=== PATIENT | male | born 1945 | race Caucasian/White ===

== ENCOUNTER → 2019-01-21 08:13 | Outpatient (CLI) | payer OTHER ==
[~2019-01-21 08:13] MED LIST: BAYER CHEWABLE81 MG PO; BETAPACE 80 MG80 MG PO; ELIQUIS5 MG PO; PERCOCET 5-3251 TAB PO
--- NOTE | 2019-01-31 16:41 | ST ---
PATIENT:CHARAN SHAH MEDICAL RECORD: [id number] SEX: M LOCATION:[facility] ORDER #: ADMISSION DATE: 01/21/19 AGE OF PATIENT: 73 REFERRING PHYSICIAN: INTERPRETING PHYSICIAN: RANDY RUTLEDGE MD DATE OF SERVICE: 01/21/2019 Nuclear Stress Test INDICATIONS: Syncope. He was exercised on standard Joce protocol for 7 minutes 45 seconds achieving greater than 85% max target heart rate response with 33 mCi of sestamibi injected at peak stress, 11 mCi were used previously for rest images. FINDINGS: Gated SPECT reveals preserved ejection fraction at 50% with decreased thickening and brightening throughout the inferior segments. SPECT IMAGING: Cardiolite was used as myocardial perfusion agent. There is a mixed perfusion defect inferiorly, partially fixed, partially reversible; however, there is definite reversible ischemia anteriorly and laterally. The degree of reversibility is moderate throughout and the amount of myocardium involved is large. OVERALL IMPRESSION: This is markedly abnormal nuclear stress test. Reversible ischemia inferiorly, anteriorly, and laterally suggestive of multivessel coronary artery disease. We will proceed with coronary angiography as a follow-up study. TRANSINT:[id number] Voice Confirmation ID: [id number] DOCUMENT ID: [id number] RANDY RUTLEDGE MD at 1641 CC: [id number] DICTATION DATE: 01/22/19 1630 LYRIC WRITER: 01/23/19 0507 DEP CLI 01/21/19 [address] [place] [address]
[2019-02-28 11:01] VITALS: BMI 24.6
== END | disposition home or self-care (01) ==
LOC: D.HCCARDIO 08:13
PROVIDERS: ATTEND Internal Medicine Cardiovascular Disease
DX: R55 Syncope and collapse (principal)

== ENCOUNTER 2019-02-05 07:27 | Outpatient (CLI) | payer OTHER ==
[~2019-02-05] VITALS: Ht 182.9 cm; Wt 77.3 kg
--- NOTE | ~2019-02-05 | HEMODYNAMI ---
PATIENT:CHARAN SHAH MEDICAL RECORD: [id number] : 45 LOCATION:[facility] ADMISSION DATE: 02/05/19 Generatedon:02/05/201910:35 Patient name: CHARAN SHAH Patient #: [id number] SSN: : 1945 Date of study: 02/05/2019 Page: Of Hemodynamic Procedure Report Patient Data Patient Demographics Procedure consent was obtained First Name: CHARAN Gender: Male Last Name: PABLO : 1945 Patient #: [id number] Age: 73 year(s) Race: Unknown Additional ID: [id number] Contact details Address: [address] [place] [address] State: [place] City: [place] Zip code: [address] Past Medical History Allergies: No known allergies Admission Admission Data Admission Date: 02/05/2019 Admission Time: 7:27 Height (in.): 71.65 BSA: 1.98 (m2) Height (cm.): 182 BMI: 23.25 (kg/m2) Weight (lbs.): 169.76 Weight (kg.): 77 Lab Results Lab Result Date: 02/05/2019 Lab Result Time: 0:00 Biochemistry Name Units Result Min Max BUN mg/dl 16 --(---*)-- 7 18 Creatinine mg/dl 1.1 --(--*-)-- 0.6 1.3 CBC Name Units Result Min Max Hematocrit % 47.6 --(-*--)-- 42 54 Hemoglobin g/dl 16.5 --(--*-)-- 13.5 17.5 Procedure Procedure Types Cath Procedure Diagnostic Procedure [facility] Procedure Description Procedure Date Procedure Date: 02/05/2019 Procedure Start Time: 10:18 Procedure End Time: 10:30 Procedure Staff Name Function James Barnett MD Performing Physician Joi Beavers RT Monitor Gera Santos RT Scrub Antwan Vee RN Nurse Procedure Data Cath Procedure Fluoroscopy Diagnostic fluoroscopy Total fluoroscopy Time: 1.9 time: 1.9 min min Diagnostic fluoroscopy Total fluoroscopy dose: 421 dose: 421 mGy mGy Contrast Material Contrast Material Type Amount (ml) Isovue 300 67 Entry Location Entry Primary Successful Side Size Upsize Upsize Entry Closure Succes sful Closure Location (Fr) 1 (Fr) 2 (Fr) Remarks Device Remarks Femoral Right 5 Fr Exoseal artery Estimated blood loss: 5 ml Diagnostic catheters Device Type Used For End Catheter Placement MULTIPACK JL 4.0 5Fr Procedure catheter MULTIPACK 3DRC 5Fr Procedure catheter MULTIPACK Pigtail 5 Fr Procedure catheter Procedure Complications No complications Procedure Medications Medication Administration Route Dosage 0.9% NaCl I.V. 100 ml/hr Oxygen etCO2 Nasal cannula 2 l/min Heparin Flush Bag added to field 2 bags (1000units/500ml NS) Lidocaine 2% added to field 20 Versed I.V. 2 mg Fentanyl I.V. 100 mcg Hemodynamics Rest BSA: 1.98 (m2) HGB: 16.5 (g/dl) O2 Consumption: Estimated: 213.02 (ml/min) O2 Co nsumption indexed: Estimated:107.59 (ml/min/m) Heart Rate: 50 (bpm) Pressure Samples Time Site Value (mmHg) Purpose Heart Use Rate(bpm) 10:26 LV 115/-2,4 EDP 50 10:27 AO 115/56(79) Pullback 48 10:27 LV 103/0,13 Pullback 48 Gradients Valve Time Site 1 Site 2 Mean SEP/DFP Peak To Heart Use (mmHg) (sec/min) Peak Rate (mmHg) (bpm) Aortic 10:27 LV AO 0 5 0 48 103/0,13 115/56(79) Calculations Valve P-P Mean Valve Index Valve Source Name Gradient Area Flow (cm2) Aortic 0 0 0 0 Snapshots Pre Cath Intra NCS Post Cath Vital Signs Time Heart Resp SPO2 etCO2 NIBP Rhythm Pain Sedation Rate (ipm) (%) (mmHg) (mmHg) Status Level (bpm) 10:08:36 51 17 100 33.8 122/68(86) NSR 0 (11) 10(A) , No pain 10:12:46 45 11 99 36.7 112/64(75) NSR 0 (11) 10(A) , No pain 10:16:54 49 10 98 37.5 111/64(77) NSR 0 (11) 10(A) , No pain 10:21:00 50 19 98 39 110/63(73) NSR 0 (11) 9(A) , No pain 10:25:06 50 18 98 40.5 113/66(81) NSR 0 (11) 9(A) , No pain 10:29:10 48 15 98 38.3 117/63(75) NSR 0 (11) 9(A) , No pain Medications Time Medication Route Dose Verified Delivered Reason Notes Eff ectiveness by by 10:05:27 0.9% NaCl I.V. 100 Antwan Antwan Per ml/hr Nanda Bhandariigan physician RN RN 10:05:54 Oxygen etCO2 2 Antwan Antwan for low 02 Nasal l/min Lorigan Lorigan sats cannula RN RN 10:06:05 Heparin Flush added 2 Antwan Antwan used for Bag to bags Lorigan Lorigan procedure (1000units/500ml field RN RN NS) 10:06:15 Lidocaine 2% added 20ml Antwan Antwan for local to vial Lorigan Lorigan anesthetic field RN RN 10:15:34 Versed I.V. 2 mg Antwan Antwan for Lorigan Lorigan sedation RN RN 10:15:42 Fentanyl I.V. 100 Antwan Antwan for mcg Lorigan Lorigan sedation RN flatwork washer Log Time Note 9:45:34 Signed procedure consent form obtained from patient. 9:45:35 Diagnostic Cath status Elective 9:45:39 Plan of Care:Hemodynamics will remain stable., Cardiac rhythm will remain stable., Comfort level will be maintained., Respiratory function will remain adequate., Patient/ family verbilizes understanding of procedure., Procedure tolerated without complication., Recovers from procedure without complications.. 9:45:41 Time tracking: Regular hours (M-F 7:00 - 5:00) 9:48:22 Patient allergic to No known allergies 9:49:20 H&P Date Dictated: 01/10/2019 Within 30 days and on chart., H&P Addendum completed by physician on day of procedure. (MUST COMPLETE FOR ALL OUTPATIENTS). 9:51:08 Lab Result : BUN 16 mg/dl 9:51:08 Lab Result : Hemoglobin 16.5 g/dl 9:51:08 Lab Result : Creatinine 1.1 mg/dl 9:51:08 Lab Result : Hematocrit 47.6 % 9:52:49 Antwan Vee RN sent for patient. Start room use. 9:56:53 Patient received from Pre/Post Procedure Room to CCL 2 Alert and oriented. Tansferred to table in Supine position. 9:56:54 Warm blankets applied, and tashia hugger turned on for patient comfort. 9:56:55 Correct patient and procedure confirmed by team. 9:56:56 ECG and BP/O2 sat monitors applied to patient. 10:05:27 0.9% NaCl 100 ml/hr I.V. was administered by Antwan Vee RN; Per physician; 10:05:54 Oxygen 2 l/min etCO2 Nasal cannula was administered by Antwan Vee RN; for low 02 sats; 10:06:05 Heparin Flush Bag (1000units/500ml NS) 2 bags added to field was administered by Antwan Vee RN; used for procedure; 10:06:15 Lidocaine 2% 20ml vial added to field was administered by Antwan Vee RN; for local anesthetic; 10:07:27 Vital chart was started 10:08:26 Baseline sample Acquired. 10:08:29 Rhythm: sinus bradycardia 10:08:30 Full Disclosure recording started 10:08:31 Pre-procedure instructions explained to patient. 10:08:31 Pre-op teaching completed and patient verbalized understanding. 10:08:33 Family in patients room. 10:08:34 Patient NPO since Midnight. 10:08:36 Is patient on blood thinner?No 10:08:37 Patient diabetic? No. 10:08:39 Is the patient allergic to Iodine/contrast media? No. 10:08:42 Previous problem with sedation/anesthesia? No ? 10:08:43 Snore? Yes 10:08:44 Sleep apnea? No 10:08:45 Deviated septum? No 10:08:45 Opens mouth fully? Yes 10:08:46 Sticks out tongue? Yes 10:08:48 Airway obstruction? No ? 10:08:49 Dentures? No ? 10:08:51 Pre procedure: right dorsailis pedis pulse 1+ Palpable, but thready & weak; easily obliterated 10:08:59 Patient pain scale 0/10 ?. 10:09:03 IV patent on arrival in left hand with 0.9% NaCl at [facility]. 10:09:05 Lab results completed and on chart. 10:09:08 Right groin area was prepped with chlora-prep and draped in sterile fashion 10:09: Alarms reviewed by R. N. 10:09: Sharps counted by scrub and verified by R.N. 10:09:22 Use device set Femoral Dx 10:09:23 ACIST Syringe (53849) opened to sterile field. 10:09:24 Bag Decanter (2002S) opened to sterile field. 10:09:24 ACIST Hand Control (26896) opened to sterile field. 10:09:25 ACIST Manifold (24911) opened to sterile field. 10:09:26 Tegaderm 4 x 4 (1626W) opened to sterile field. 10:09:27 Medline Cath Pack ([id number]) opened to sterile field. 10:09:28 DIAGNOSTIC WIRE .035 260cm J wire (157793) opened to sterile field. 10:09:29 DIAGNOSTIC Multipack 5Fr catheter set (PX9629) opened to sterile field. 10:09:30 SHEATH 5FR [place] (GIE493) opened to sterile field. 10:11:16 Patient Weight : 169.76 lbs 10:11:19 Patient Height : 71.65 inches 10:15:04 --------ALL STOP TIME OUT------ 10:15:05 Final Timeout: patient, procedure, and site verified with staff and physician. All members of the team are in agreement. 10:15:06 Right groin site verified by team. 10:15:08 Maximum allowable Isovue 300 dose 300ml. Physician notified. (300ml for normal creatinines. For patients with creatinine of 1.7 or higher multiply weight(kg) x 5 divided by creatinine.) 10:15:11 Fire Safety Assessment: A--An alcohol-based skin anteseptic being used preoperatively., C--Open oxygen or nitrous oxide is being used., D--An ESU, laser, or fiber-optic light is being used. 10:15:13 Physical assessment completed. ASA score P 2 - A patient with mild systemic disease as per James Barnett MD. 10:15:15 Sedation plan: IV Moderate Sedation Medication:Versed, Fentanyl 10:15:19 Zero performed for pressure channel P1 10:15:34 Versed 2 mg I.V. was administered by Antwan Vee RN; for sedation; 10:15:42 Fentanyl 100 mcg I.V. was administered by Antwan Vee RN; for sedation; 10:17:40 Procedure started. 10:18:11 Local anesthetic to right femoral artery with Lidocaine 2% by James Barnett MD.INITIAL ACCESS ONLY 10:19:05 A 5 Fr sheath was inserted into the Right Femoral artery 10:20:02 A MULTIPACK JL 4.0 5Fr catheter was advanced over the wire and used for Procedure. 10:22:02 LCA angiography performed. 10:22:15 Catheter exchanged over wire. 10::40 A MULTIPACK 3DRC 5Fr catheter was advanced over the wire and used for Procedure. 10:24:15 RCA angiography performed. 10:24:47 Catheter exchanged over wire. 10:25:07 A MULTIPACK Pigtail 5 Fr catheter was advanced over the wire and used for Procedure. 10:25:34 LV gram done using PINTO 10::38 Injector settings: Ml/sec: 10, Volume: 20, 10:26:19 LV hemodynamics recorded. 10:27:11 EF : 40 % 10:27:14 Catheter removed. 10:27:59 EXOSEAL 5Fr (EX500) opened to sterile field. 10:28:35 Sheath removed intact; hemostasis achieved with Exoseal to the Right Femoral artery. 10:29:08 Procedure ended.(Physican Out) 10:29:24 Fluoroscopy time 01.90 minutes. 10:29:28 Fluoroscopy dose: 421 mGy 10::28 Flurop Dose total: 421 10:29:32 Contrast amount:Isovue 300 67ml. 10:29:33 Sharps counted by scrub and verified by R.N. 10:29:36 Post-op/insertion site Right Femoral artery dressed using a 4 x 4 and Tegaderm. 10:29:38 Post-procedure physical assessment completed. ASA score P 2 - A patient with mild systemic disease as per James Barnett MD. 10:29:41 Post procedure rhythm: sinus bradycardia 10::44 Estimated blood loss: 5 ml 10:29:45 Post procedure instruction explained to patient.Patient verbalizes understanding. 10:29:46 Patient needs reinforcement of post procedure teaching. 10:30:13 Procedure and supply charges have been captured, reviewed, submitted and are correct. 10:30:16 Procedure Complication : No complications 10:30:18 Vital chart was stopped 10:30:18 See physician's report for complete and final results. 10:30:22 Report given to Pre/Post Procedure Room. 10:30:25 Patient transfered to Pre/Post Procedure Room with Bed. 10:30:27 Procedure ended. 10:30:27 Full Disclosure recording stopped 10:30:30 End room use (Document Last) Device Usage Item Name Manufacture Quantity Catalog Hospital Part Current Minimal L ot# / Number Charge Number Stock Stock Serial# Code ACIST Acist 1 86503 140936 800692 061073 20 Syringe Medical (23100) Systems Inc Bag Microtek 1 2001S 860351 28417 242608 5 Decanter Medical Inc. () ACIST Hand Acist 1 73091 938553 962179 990036 5 Control Medical (73828) Systems Inc ACIST Acist 1 27382 021942 171653 953354 5 Manifold Medical (81919) Systems Inc Tegaderm 4 3M 1 1626W 617372 417754 374775 5 x 4 (1626W) Medline Medline 1 [id number] 491455 49133 185007 5 Cath Pack ([id number]) DIAGNOSTIC St Kota 1 027742 292210 640900 205308 30 WIRE .035 260cm J wire (692543) DIAGNOSTIC Cardinal 1 [id number] 052952 69297 727501 30 Multipack Health 5Fr catheter set (NK0311) SHEATH 5FR Terumo 1 TRR334 766031 760097 336271 5 [place] (LFN623) MULTIPACK Cardinal 1 402610 5 JL 4.0 5Fr Health catheter MULTIPACK Cardinal 1 930215 5 3DRC 5Fr Health catheter MULTIPACK Cardinal 1 404468 5 Pigtail 5 Health Fr catheter EXOSEAL 5Fr Cardinal 1 EX500 816408 273463 346904 10 (EX500) Health Signature Audit Ranger Stage Time Signature Unsigned Intra-Procedure 02/05/2019 Joi Beavers 10:35:38 AM RT(R) Signatures Monitor : Joi Beavers Signature : RT Date : Time : [address] [place] [address]
[2019-02-05 08:00] VITALS: BP 139/70; BMI 23.1
[2019-02-05 08:10] LABS: BASOPHILS 0.2 % (0-2); EOSINOPHILS 4.2 % (0-7); HEMATOCRIT 47.6 % (42.0-54.0); HEMOGLOBIN 16.5 g/dL (13.5-17.5); IMMATURE GRANULOCYTES 0.2 % (0-5); LYMPHOCYTES 23.6 % (15-50); MCH 30.7 pg (26.0-34.0); MCHC 34.7 g/dL (31.0-37.0); MCV 88.6 fL (80.0-100.0); MEAN PLATELET VOLUME 10.1 fL (7.4-10.4); MONOCYTES 10.6 % (2-11); NEUTROPHILS 61.2 % (40-80); PLATELET COUNT 187 10x3/uL (130-400); RBC 5.37 10x6/uL (4.20-6.10); RDW 12.5 % (11.5-14.5); WBC 6.4 10x3/uL (4.8-10.8)
[2019-02-05 08:20] LABS: ANION GAP 8.9 mmol/L (8-16); CALCIUM 8.8 mg/dL (8.5-10.1); CARBON DIOXIDE 28.7 mmol/L (21.0-32.0); CREATININE - SERUM 1.1 mg/dL (0.6-1.3); POTASSIUM - SERUM 3.6 mmol/L (3.5-5.1)
--- NOTE | 2019-02-05 10:43 | NUR ---
PT ARRIVED BY STRETCHER. PLACED ON MONITORS. ASSESSMENT COMPLETED. CALL LIGHT WITHIN REACH.
--- NOTE | 2019-02-05 11:00 | NUR ---
RIGHT GROIN DRESSING C/D/I. NO S/S OF HEMATOMA NOTED. RIGHT PEDAL PULSE PRESENT. VSS. RESTING COMFORTABLY.
--- NOTE | 2019-02-05 11:30 | NUR ---
RIGHT GROIN DRESSING C/D/I. NO S/S OF HEMATOMA NOTED. VSS. PT RESTING COMFORTABLY.
--- NOTE | 2019-02-05 11:46 | NUR ---
HEAD OF BED INC TO 30 DEGREES. TOLERATED WELL. RIGHT GROIN DRESSING C/D/I. NO S/S OF HEMATOMA NOTED. VSS. PT MORE ALERT. SET UP WITH SANDWICH TRAY AND DRINK. DENIES PAIN/NAUSEA AT THIS TIME. DR. MORENO WILL ROUND WHEN PT IS MORE ALERT AND SPEAK WITH HIM REGARDING HIS RESULTS.
--- NOTE | 2019-02-05 12:06 | NUR ---
PT VOIDED APPROX 400 CC OF URINE IN URINAL. TOLERATED WELL. ATE FOOD/DRINK. DENIES NAUSEA.
--- NOTE | 2019-02-05 13:00 | NUR ---
RIGHT GROIN DRESSING C/D/I. NO S/S OF HEMATOMA NOTED. LEFT ARM PIV D/C'D WITH CATH TIP INTACT. PT TOLERATED WELL. PT UP AND DRESSED SELF. AMBULATED TO RESTROOM AND VOIDED WITHOUT DIFFICULTY. STEADY GAIT NOTED.
--- NOTE | 2019-02-05 13:16 | NUR ---
WAITING ON DR. SCOTT TO ROUND AND SPEAK WITH PT.
--- NOTE | 2019-02-05 14:14 | NUR ---
DR. SCOTT AT BEDSIDE SPEAKING WITH PT.
[2019-02-05] MEDS ORDERED: BAYER CHEWABLE81 MG PO (14:32)
--- NOTE | 2019-02-05 14:40 | NUR ---
DISCUSSED DISCHARGE INSTRUCTIONS WITH PT. HE VOICED UNDERSTANDING.
--- NOTE | 2019-02-05 14:44 | NUR ---
PT TAKEN OUT TO VEHICLE BY WHEELCHAIR. NO S/S OF DISTRESS NOTED. ALL BELONGINGS AND PAPERWORK IN HAND.
[2019-02-06 13:50] VITALS: Ht 182.9 cm; Wt 77.3 kg
== END 2019-02-05 14:45 | disposition home or self-care (01) ==
LOC: D.CATH 07:27
PROVIDERS: ATTEND Internal Medicine Cardiovascular Disease
DX: I25.119 Atherosclerotic heart disease of native coronary artery with unspecified angina pectoris (principal); R94.30 Abnormal result of cardiovascular function study, unspecified; K21.9 Gastro-esophageal reflux disease without esophagitis; Z79.82 Long term (current) use of aspirin; Z87.891 Personal history of nicotine dependence; Z01.812 Encounter for preprocedural laboratory examination

== ENCOUNTER 2019-02-24 07:55 | Inpatient (IN) | payer OTHER ==
[~2019-02-24] VITALS: Ht 182.9 cm; Wt 79.5 kg
[~2019-02-24 07:55] MED LIST changes: -BETAPACE 80 MG80 MG PO; -ELIQUIS5 MG PO; -PERCOCET 5-3251 TAB PO
[2019-02-24 10:15] LABS: BASOPHILS 0.1 % (0-2); EOSINOPHILS 1.7 % (0-7); HEMATOCRIT 48.1 % (42.0-54.0); HEMOGLOBIN 16.6 g/dL (13.5-17.5); IMMATURE GRANULOCYTES 0.1 % (0-5); LYMPHOCYTES 15.1 % (15-50); MCH 30.9 pg (26.0-34.0); MCHC 34.5 g/dL (31.0-37.0); MCV 89.4 fL (80.0-100.0); MEAN PLATELET VOLUME 10.2 fL (7.4-10.4); MONOCYTES 10.8 % (2-11); NEUTROPHILS 72.2 % (40-80); PLATELET COUNT 187 10x3/uL (130-400); RBC 5.38 10x6/uL (4.20-6.10); RDW 12.7 % (11.5-14.5); WBC 7.8 10x3/uL (4.8-10.8)
[2019-02-24 10:28] LABS: APPEARANCE CLEAR (CLEAR); BILIRUBIN NEGATIVE (NEGATIVE); COLOR YELLOW (YELLOW); GLUCOSE NEGATIVE (NEGATIVE); KETONE NEGATIVE (NEGATIVE); NITRITE NEGATIVE (NEGATIVE); PROTEIN NEGATIVE (NEGATIVE); SPECIFIC GRAVITY 1.015 (1.005-1.020); UROBILINOGEN NORMAL (NORMAL)
[2019-02-24 10:33] LABS: APTT 31.4 SECONDS (22.8-39.4); INR 1.11 (0.85-1.17); PROTIME 13.8 SECONDS (11.6-15.0)
[2019-02-24 10:48] LABS: ANION GAP 8.9 mmol/L (8-16); BILIRUBIN - TOTAL 0.8 mg/dL (0.2-1.3); CALCIUM 9.2 mg/dL (8.5-10.1); CARBON DIOXIDE 31.4 mmol/L (21.0-32.0); CREATININE - SERUM 1.1 mg/dL (0.6-1.3); PHOSPHOROUS 3.2 mg/dL (2.5-4.9); POTASSIUM - SERUM 4.3 mmol/L (3.5-5.1); PROTEIN - SERUM 7.2 g/dL (6.4-8.2); T4 THYROXIN - FREE 1.14 ng/dL (0.76-1.46); THYROID STIMULATING HORMONE 1.98 uIU/mL (0.36-3.74); URIC ACID 4.3 mg/dL (2.6-7.2)
[2019-02-27] VITALS (49 sets, daily range): BP systolic 100–139; BP diastolic 48–78; BMI 23.1; BMI 24.4
--- NOTE | 2019-02-27 14:07 | NUR ---
1300 PT ARRIVED TO ROOM SEDATED FROM SURGERY, ETT 24 AT [facility], SECURED AND PLACED ON VENT BY RT, R IJ CVL DRESSING CDI WITH PLASMALYTE, ADDISON, DOPAMINE INFUSING, ZINACEF INITIATED PER EMAR, R RADIAL A LINE POSITIONAL, WRIST PROTECTOR IN PLACE, DRESSING CDI, MIDSTERNAL INCISION DRESSING CDI SUBSTERNAL TPM WIRES ATTACHED TO TPM, TPM OFF, CTX2 TO 20CMSUCTION NO AIR LEAK, BLOODY DRAINAGE, ZO DRAIN COMPRESSED WITH BLOODY DRAINAGE, RLE HARVEST SITES CDI WITH COBAN FROM GROIN TO ANKLE, CRITICORE DRAINING YELLOW URINE, NO SIGNS OF PAIN, ABLE TO FOLLOW COMMANDS WITH HAND DOG FOOD SHREDDER OPERATOR, FAMILY UPDATED BY DR SCOTT THEN IN ROOM TO SEE PT, STATED THEY WERE GOING TO EAT AND WOULD BE BACK 1330 HR DROPPING INTO 50S, LOWEST SEEN AT 57, DR SCOTT IN UNIT AND NOTIFIED, TPM TURNED ON AAI 70 AMA 15
--- NOTE | 2019-02-27 15:41 | NUR ---
PPM TURNED OFF BY DR SCOTT HR 68 NSR
--- NOTE | 2019-02-27 16:48 | NUR ---
ABGS CALLED TO DR SCOTT WHO SAID NOT TO TREAT BASE EXCESS AND OKAY TO EXTUBATE
--- NOTE | 2019-02-27 17:07 | NUR ---
1655 PT EXTUBATED AND RESTRAINTS REMOVED, [id number]
--- NOTE | 2019-02-27 18:19 | NUR ---
CRITICORE TEMP 98.4, PERCOCET ADMIN FOR PAIN (CONTAINS TYLENOL
--- NOTE | 2019-02-27 19:08 | NUR ---
REPORT RECEIVED, SHIFT ASSESSMENT COMPLETED PER FLOW SHEET. AAOX4. PPP. RT IJ CVL PATENT, INFUSING PLASMALYTE AT 100 ML/HR, ZINACEF AT 11.4 ML/HR, AND DOPAMINE AT 5.8 ML/HR OR 2 MCG/KG/MIN. CVP AND RT ARTERIAL LINE LEVELED AND ZEROED WITH GOOD WAVEFORM. COUGH/DEEP BREATHING AND USE OF IS ENCOURAGED. COUGH WEAK AND NON-PRODUCTIVE, PULLING 750 X10 ON IS. SEE FLOW SHEET FOR COMPLETE ASSESSMENT. DENIES PAIN OR NEEDS. CALL LIGHT WITHIN REACH. WILL CONTINUE TO MONITOR.
--- NOTE | 2019-02-27 20:34 | NUR ---
SCHEDULED MEDS GIVEN. WATER PROVIDED. NO DIFFFICULTY SWALLOWING. DENIES NEEDS. CALL LIGHT WITHIN REACH.
--- NOTE | 2019-02-27 22:00 | NUR ---
WATER PROVIDED. PULLING 750 X10 ON IS. COUGH WEAK, NON-PRODUCTIVE.
--- NOTE | 2019-02-27 23:01 | NUR ---
REASSESSMENT COMPLETED PER FLOW SHEET, SEE FOR DETAILS. NO ACUTE CHANGES NOTED. PPP. DENIES NEEDS. DANGLE AT BEDSIDE, PER DOCTOR'S ORDERS, TOLERATED WELL. REPOSITIONED IN BED. WATER PROVIDED. DENIES OTHER NEEDS. CALL LIGHT WITHIN REACH. WILL CONTINUE TO MONITOR.
[2019-02-28] VITALS (55 sets, daily range): BP systolic 85–133; BP diastolic 43–76; Ht 182.9 cm; Wt 79.5 kg
--- NOTE | 2019-02-28 00:01 | NUR ---
C/O PAIN, PRN PERCOCET GIVEN. WATER PROVIDED. DENIES OTHER NEEDS. CALL LIGHT WITHIN REACH.
--- NOTE | 2019-02-28 01:00 | NUR ---
RESTING, DENIES NEEDS. CALL LIGHT WITHIN REACH. WILL CONTINUE TO MONITOR.
--- NOTE | 2019-02-28 03:02 | NUR ---
REASSESSMENT COMPLETED PER FLOW SHEET, SEE FOR DETAILS. NO ACUTE CHANGES NOTED. WATER PROVIDED. PPP. DENIES NEEDS. CALL LIGHT WITHIN REACH. WILL CONTINUE TO MONITOR.
--- NOTE | 2019-02-28 05:00 | NUR ---
SUBSTERNAL DRESSING CHANGED PER DOCTOR'S ORDERS. TPM WIRES INTACT. WATER PROVIDED. CALL LIGHT WITHIN REACH. WILL CONTINUE TO MONITOR.
--- NOTE | 2019-02-28 06:00 | NUR ---
COMPLETE BED BATH GIVEN. COMPLETE BED LINEN CHANGE PROVIDED.
--- NOTE | 2019-02-28 06:20 | NUR ---
ASSISSTED OOB TO CHAIR, TOLERATED WELL. CALL LIGHT WITHIN REACH.
[2019-02-28 06:28] LABS: ALBUMIN 2.7 g/dL (3.4-5.0); ALKALINE PHOSPHATASE 48 U/L (46-116); ALT (SGPT) 18 U/L (10-68); BILIRUBIN - TOTAL 1.34 mg/dL (0.2-1.3); CALC OSMOLALITY 282 mosm/kg (275-300); CALCIUM 7.7 mg/dL (8.5-10.1); CARBON DIOXIDE 27.3 mmol/L (21.0-32.0); CHLORIDE - SERUM 105 mmol/L (98-107); CREATININE - SERUM 0.9 mg/dL (0.6-1.3); POTASSIUM - SERUM 4.6 mmol/L (3.5-5.1); PROTEIN - SERUM 4.9 g/dL (6.4-8.2); SODIUM 139 mmol/L (136-145); UREA NITROGEN 18 mg/dL (7-18); eGFR NON AFRICAN AMERICAN 88 mL/min (90-120)
[2019-02-28 06:31] LABS: GLUCOSE 151 mg/dL (74-106)
[2019-02-28 06:56] LABS: HEMATOCRIT 37.8 % (42.0-54.0); HEMOGLOBIN 12.7 g/dL (13.5-17.5); MCHC 33.6 g/dL (31.0-37.0); MCV 89.4 fL (80.0-100.0); MEAN PLATELET VOLUME 10.3 fL (7.4-10.4); RBC 4.23 10x6/uL (4.20-6.10); WBC 15.4 10x3/uL (4.8-10.8)
--- NOTE | 2019-02-28 09:55 | NUR ---
0700 PT RECIEVED UP IN CHAIR ALERT AND ORIENTED O2 4L NC R IJ CVL DRESSING CDI, SEE IV FLOWSHEET, MIDSTERNAL AND SUBSTERNAL DRESSINGS CDI WITH SUBSTERNAL CTX2 20CM SUCTION BLOODY DRAINAGE NO AIR LEAK, SUBSTERNAL ZO DRAIN COMPRESSED WITH BLOODY DRAIANGE, TPM WIRES ATTACHED BUT TPM OFF, RLE HARVEST SITES CDI WITH COBAN GROIN TO ANKLE, CRITICORE DRAINING YELLOW URINE 0745 PT ASSISTED BACK TO BED AND CTS REMOVED BY DR SCOTT 0930 A LINE REMOVED PER PROTOCOL TIP INTACT NO SIGNS OF BLEEDING,MOY CATH REMOVED PER PROTOCOL TIP INTACT, RLE COBAN REMOVED, BREONNA AND SCD APPLIED, ASSISTED BACK TIP TO CHAIR
--- NOTE | 2019-02-28 10:06 | NUR ---
AFTER BEING ASSISTED BACK TO CHAIRHR 116 JUNCTIONAL RHYTHEM WITH BIGEMINEY PVCS (EKG STRIP REVIEWED BY DR GEORGE AND JOSH) FOR APPROX 30 SECONDS THEN CONVERTING TO NSR 80S.
--- NOTE | 2019-02-28 13:01 | NUR ---
PT HR ELEVATED IN JUNCTIONAL WITH PVC BEFORE CONVERTING BACK TO NSR, DR ZARATE NURSE GERSON NOTIFIED
--- NOTE | 2019-02-28 14:44 | NUR ---
DR SCOTT IN UNIT AND NOTIFIED OF ARRHYTHMIAS, ORDERS FOR K AND MAG, DRAWN AND SENT TO LAB
[2019-02-28 14:53] LABS: MAGNESIUM - SERUM 2.3 mg/dL (1.8-2.4); POTASSIUM - SERUM 4.7 mmol/L (3.5-5.1)
--- NOTE | 2019-02-28 15:16 | NUR ---
CONFIRMED WITH DR SONIA VANCE TO AMBULATE WITH PHYSICAL THERAPY WITH HR 110S-120S, OKAYED AND PT AMBULATED IN ROOM WITH THERAPY
--- NOTE | 2019-02-28 16:17 | OP ---
PATIENT NAME: CHARAN SHAH MEDICAL RECORD: [id number] :45 LOCATION:D.CVI [id number] ADMISSION DATE:02/27/19 SURGEON: DEREK SCOTT MD DATE OF OPERATION: 02/27/2019 SURGEON: Derek Scott MD ASSISTANTS: Timothy Amato MD and Diony Bellamy. OPERATIONS PERFORMED: 1. Coronary artery bypass graft times 4 (left internal mammary to LAD, reverse saphenous vein graft from aorta to diagonal, aorta to obtuse marginal, aorta to posterolateral branch right coronary artery). 2. Endoscopic saphenous vein harvest. PREOPERATIVE DIAGNOSIS: Coronary artery disease. POSTOPERATIVE DIAGNOSIS: Coronary artery disease. ANESTHESIA: General endotracheal anesthesia. ESTIMATED BLOOD LOSS: Total cardiopulmonary bypass with Cell Saver retransfusion. COMPLICATIONS: None. SPECIMENS: None. CONDITION: Stable. DISPOSITION: CV ICU. OPERATIVE FINDINGS: 1. Good quality greater saphenous vein harvested endoscopically from the right lower extremity. 2. Good quality left internal mammary artery. 3. Transesophageal echocardiography with 35% ejection fraction, improved to 60% after revascularization on low-dose dopamine, chronic bradycardia, initially atrially paced after cardiopulmonary bypass. 4. LAD 2.0 mm with diffuse disease. 5. First diagonal 1.5 mm with plaque at the bifurcation, so the left branch was bypassed. 6. Obtuse marginal 2.0 mm. 7. Posterolateral branch of the right coronary artery was the largest inferior wall branch. It had significant distal disease 2.0 mm with severe disease. OPERATIVE INDICATIONS: Coronary artery disease. OPERATIVE SUMMARY IN DETAIL: The patient was brought to the operative suite. General anesthesia was obtained. The patient was prepped and draped. Greater saphenous vein was harvested in the right lower extremity utilizing endoscopic technique. Side branches were divided with electrocautery. Vessels ligated proximally and distally removed. Side branches were clipped. Leg was irrigated and closed in 2 layers. OPERATIVE REPORT [id number] CHARAN SHAH Median sternotomy incision was made. Subcutaneous tissue was divided by electrocautery. The sternum was divided with a saw. Left hemisternum was elevated. Left lower cavity was entered. Left internal mammary artery and vein were taken down as a pedicle graft. Manager Maritime surgeon was Dr. Amato. He was utilized for harvesting the vein graft, inspecting side branches and tying the side branches. The use of an family law legal assistant surgeon saved 15-30 minutes of general anesthetic time. Pericardium was opened. Heparin was given. Aorta was cannulated. Dual-stage venous cannula was inserted. The internal mammary was clipped distally and made ready for anastomosis. Activated clotting time was appropriately elevated. The patient was placed on cardiopulmonary bypass. Sites for distal anastomosis were selected. The patient's temperature was allowed to drift down really. Antegrade cardioplegic cannula was inserted. Crossclamp was placed. Cardioplegia was given antegrade and this repeated at 15 to 20 minute intervals including down the completed vein grafts. Distal anastomosis were performed in standard technique. Proximal anastomosis with single cross-clamp technique with the aortic root then de-aired by removing the clamp, deairing the root, tying the proximal anastomosis, de-airing the vein, and graft restoring flow. A single 6-0 one proximal, at proximal and distal anastomotic sites without further bleeding. The graft lay appropriately. Atrial pacing wires were placed. The patient paced, fully rewarmed, weaned from cardiopulmonary bypass and stable. The patient was decannulated. Aortic cannulation site was oversewn. Protamine was given. Thorough irrigation was undertaken, hemostasis was ensured and all grafts lay appropriately. Drains were placed in the mediastinum, left pleural cavity, and slight opening in the right pleural cavity. The left chest was evacuated and irrigated. Pericardial fat was loosely approximated the midline. The internal mammary harvest site was inspected for bleeding. Sternum closed with wires. Fascia was closed. Subcutaneous tissue was closed. Skin was closed. Dermabond was placed. The needle and sponge counts reported as correct and the patient was taken to the ICU in stable condition. TRANSINT:[id number] Voice Confirmation ID: [id number] DOCUMENT ID: [id number] DEREK SCOTT MD at 1617 CC: SHIRLENE MORENO M.D. and SHIRLENE MEDINA [id number] DICTATION DATE: 02/27/191627 DENTAL OFFICE ASSISTANT: 02/28/19 0002 ADM IN [place] [id number] [place] [id number]
--- NOTE | 2019-02-28 18:43 | NUR ---
PT UNABLE TO VOID, 218ML ON BLADDER SCAN, DR GEORGE NOTIFIED WITH ORDERS FOR IN AND OUT CATH IF UNABLE TO VOID WHEN HE STATES HE NEEDS TO VOID
--- NOTE | 2019-02-28 20:05 | NUR ---
REPORT RECEIVED AND ASSESSMENT COMPLETED. SEE FLOWSHEET FOR FULL DETAILS. VSS. PT HAS BEEN HAVING INCREASING NUMBER OF PVCS MULTIPLE MDS AWARE. WILL MONITOR THROUGHOUT SHIFT
[2019-03-01] VITALS (38 sets, daily range): BP systolic 75–127; BP diastolic 46–69
[2019-03-01 06:39] LABS: HEMATOCRIT 36.5 % (42.0-54.0); HEMOGLOBIN 12.4 g/dL (13.5-17.5); MCH 30.5 pg (26.0-34.0); MCV 89.7 fL (80.0-100.0); MEAN PLATELET VOLUME 10.1 fL (7.4-10.4); RBC 4.07 10x6/uL (4.20-6.10); RDW 12.9 % (11.5-14.5); WBC 20.9 10x3/uL (4.8-10.8)
[2019-03-01 07:02] LABS: ALBUMIN 2.7 g/dL (3.4-5.0); ANION GAP 10.2 mmol/L (8-16); BILIRUBIN - TOTAL 1.54 mg/dL (0.2-1.3); CALCIUM 8.1 mg/dL (8.5-10.1); CARBON DIOXIDE 28.3 mmol/L (21.0-32.0); CREATININE - SERUM 1.1 mg/dL (0.6-1.3); POTASSIUM - SERUM 4.5 mmol/L (3.5-5.1); PROTEIN - SERUM 5.6 g/dL (6.4-8.2)
--- NOTE | 2019-03-01 07:25 | NUR ---
DR. GEORGE NOTIFIED OF UNCONTROLLED ATRIAL FIB RATE 130S BY TABATHA CHAVES. NEW ORDER REC'D.
[2019-03-02] VITALS (25 sets, daily range): BP systolic 88–115; BP diastolic 53–73
[2019-03-02 07:01] LABS: HEMATOCRIT 33.8 % (42.0-54.0); HEMOGLOBIN 10.9 g/dL (13.5-17.5); MCHC 32.2 g/dL (31.0-37.0); MEAN PLATELET VOLUME 10.5 fL (7.4-10.4); RBC 3.63 10x6/uL (4.20-6.10)
[2019-03-02 07:02] LABS: MCV 93.1 fL (80.0-100.0)
[2019-03-02 08:07] LABS: ALBUMIN 2.5 g/dL (3.4-5.0); ALKALINE PHOSPHATASE 45 U/L (46-116); ALT (SGPT) 20 U/L (10-68); BILIRUBIN - TOTAL 0.97 mg/dL (0.2-1.3); CALC OSMOLALITY 283 mosm/kg (275-300); CALCIUM 8.5 mg/dL (8.5-10.1); CARBON DIOXIDE 27.8 mmol/L (21.0-32.0); CHLORIDE - SERUM 103 mmol/L (98-107); GLUCOSE 117 mg/dL (74-106); POTASSIUM - SERUM 5.1 mmol/L (3.5-5.1); PROTEIN - SERUM 5.5 g/dL (6.4-8.2); SODIUM 137 mmol/L (136-145); eGFR NON AFRICAN AMERICAN 78 mL/min (90-120)
[2019-03-02 08:09] LABS: UREA NITROGEN 39 mg/dL (7-18)
--- NOTE | 2019-03-02 14:03 | NUR ---
1345: IV STARTED L FOREARM WITH 20G. CARDIZEM CONNECTED TO INFUSE @ 5CC/HR. SITE DRESSED WITH TEGADERM 1400: R IJ DC'D. MANUAL PRESSURE HELD X 2 MIN. SITE DRESSED WITH 2X2 AND TEGADERM.
--- NOTE | 2019-03-02 19:00 | NUR ---
REPORT RECEIVED, SHIFT ASSESSMENT COMPLETE SEE FLOW SHEET FOR FURTHER, PT AAOx4, DENIES PAIN, MOUTHWASH GIVEN PER REQUEST, I/S COMPLETED, VSS, WILL CONTINUE TO MONITOR
--- NOTE | 2019-03-02 19:59 | NUR ---
ORAL CARE PROVIDED WITH PERIDEX
--- NOTE | 2019-03-02 22:30 | NUR ---
PT ASSISTED TO STAND AT BEDSIDE TO USE URINAL, DARK YELLOW VOID NOTED, PT TOLLERATED STANDING WITHOUT ASSIST AND REPOSITIONED BACK IN BED, VSS, TCDB AND I/S COMPLETED
--- NOTE | 2019-03-02 23:00 | NUR ---
REASSESSMENT COMPLETE SEE FLOW SHEET, PT RESTING IN BED, WAKES WHEN RN ENTERS ROOM, DENIES PAIN OR NEEDS AT THIS TIME, AFIB WITH FREQUENT PVC'S ON CM PHYSICIANS AWARE, OTHER VSS, TCDB AND I/S COMPLETED, WILL CONTINUE TO MONITOR
[2019-03-03] VITALS (24 sets, daily range): BP systolic 90–125; BP diastolic 57–75
--- NOTE | 2019-03-03 03:00 | NUR ---
REASSESSMENT COMPLETE SEE FLOW SHEET, NO ACUTE CHANGES NOTED, PT DENIES PAIN OR NEEDS, DRSG'S C/D/I, VSS, TCDB AND I/S COM[PLETED, WILL CONTINUE TO MONITOR
--- NOTE | 2019-03-03 04:00 | NUR ---
PT OOB TO BATHROOM, PT STATED HE ONLY PRODUCED GAS, NO BM, CLEAR YELLOW VOID NOTED, PT ASSISTED BACK TO BED AND REPOSITIONED FOR COMFORT
[2019-03-03 04:30] LABS: HEMATOCRIT 31.7 % (42.0-54.0); HEMOGLOBIN 10.5 g/dL (13.5-17.5); MCH 30.1 pg (26.0-34.0); MCHC 33.1 g/dL (31.0-37.0); MEAN PLATELET VOLUME 9.8 fL (7.4-10.4); RBC 3.49 10x6/uL (4.20-6.10); RDW 12.8 % (11.5-14.5)
[2019-03-03 04:33] LABS: MCV 90.8 fL (80.0-100.0); WBC 12.2 10x3/uL (4.8-10.8)
[2019-03-03 04:47] LABS: ALBUMIN 2.3 g/dL (3.4-5.0); ALKALINE PHOSPHATASE 46 U/L (46-116); ALT (SGPT) 21 U/L (10-68); BILIRUBIN - TOTAL 0.76 mg/dL (0.2-1.3); CALC OSMOLALITY 277 mosm/kg (275-300); CALCIUM 7.9 mg/dL (8.5-10.1); CARBON DIOXIDE 29.7 mmol/L (21.0-32.0); CHLORIDE - SERUM 101 mmol/L (98-107); CREATININE - SERUM 0.9 mg/dL (0.6-1.3); GLUCOSE 114 mg/dL (74-106); MAGNESIUM - SERUM 1.9 mg/dL (1.8-2.4); PROTEIN - SERUM 5.3 g/dL (6.4-8.2); SODIUM 135 mmol/L (136-145); UREA NITROGEN 33 mg/dL (7-18); eGFR NON AFRICAN AMERICAN 88 mL/min (90-120)
[2019-03-03 04:50] LABS: POTASSIUM - SERUM 4.2 mmol/L (3.5-5.1)
--- NOTE | 2019-03-03 06:00 | NUR ---
CHG BATH COMPLETED, SUBSTERNAL DRSG CHANGED AND DATED, CLEAN LINEN AND GOWN, REPLACED BREONNA HOSE AND NON-SLIP SOCKS, PT UP WITH MINIMAL ASSIST TO BEDSIDE CHAIR, VSS, WILL CONTINUE TO MONITOR
--- NOTE | 2019-03-03 06:28 | NUR ---
ORAL CARE DONE WITH PERIDEX
--- NOTE | 2019-03-03 07:25 | NUR ---
SHIFT REPORT RECEIVED. AA&0. UP IN CHAIR. RATES PAIN 5/10 IT INCISION SITE. MIDSTERNAL DRESSING CDI, SUBTERNAL DRESSING CDI, TPM WIRES IN PLACE, L-ZO DRAIN IN PLACE. R-LEG HARVEST SITES WELL APPROXIMATED OK. ON ROOM AIR. IRREGULAR HEART RATE. ON CARDIZEM AT 7MG/HR TO L-FOREARM 20G PIV. SHIFT ASSESSMENT COMPLETED AND CHARTED IN FLOWSHEET. CALL LIGHT IN REACH. WILL CONTINUE TO MONITOR.
--- NOTE | 2019-03-03 07:25 | CN ---
PATIENT NAME:CHARAN SHAH MEDICAL RECORD: [id number] : 45 LOCATION:NANCY[facility].CV04 ADMIT DATE: 02/27/19 ACCOUNT: [id number] CONSULTING PHYSICIAN: SHIRLENE MEDINA MD REFERRING PHYSICIAN: DEREK SCOTT MD DATE OF CONSULTATION: 02/27/2019 MEDICAL CONSULTATION ADMITTING PHYSICIAN: Dr. Derek Scott REASON FOR CONSULTATION: Postoperative medical management. HISTORY OF PRESENT ILLNESS: The patient is a 73-year-old male who was noted in December of this year to have episode of near syncope and palpitations. Outpatient workup showed EF of 50% and an abnormal stress test and ultimately cardiac cath showing 4 vessels CAD. He underwent 4-vessel CABG per Dr. Scott this morning without complication, but bradycardia was noted preoperatively. The patient currently is immediately postop and is not on amiodarone due to low heart rate. PAST MEDICAL HISTORY: Allergic rhinitis, history of calcium oxalate kidney stones post lithotripsy, osteoarthritis, onychomycosis of toenails, BPH. PAST SURGICAL HISTORY: He had a cyst removed from his heel as a teenager. He has had lithotripsy for nephrolithiasis. SOCIAL HISTORY: Nonsmoker, nondrinker. He is not currently , but has a significant other. FAMILY HISTORY: Father at 83 from stroke. Mother at 86 due to colon cancer. HOME MEDICATIONS: Zyrtec 10 mg daily, aspirin 81 mg daily. REVIEW OF SYSTEMS: CONSTITUTIONAL: Recently, he has been somewhat fatigued with mild exertional shortness of breath. No weight change or fever. HEENT: No recent visual change, sinus congestion, or sore throat. RESPIRATORY: No cough or sputum production. He has had mild exertional dyspnea as mentioned. CARDIAC: He has had palpitations recently without chest pain. GASTROINTESTINAL: No nausea, vomiting, change in stools or blood per rectum. GENITOURINARY: Nocturia once nightly. No dysuria. ENDOCRINE: Denies polyuria, polydipsia, heat or cold intolerance. NEUROLOGIC: No history of stroke, TIA, vascular headaches, or seizures. INTEGUMENT: No rash or itching. PSYCHIATRIC: Denies depressed mood. PHYSICAL EXAMINATION: GENERAL: The patient immediately postoperative, intubated on ventilator in no acute distress. HEENT: Pupils are sluggish, but equal. Oropharynx exam was not performed due to ET tube. NECK: Supple. CONSULT REPORT [id number] CHARAN SHAH CHEST: Shows fresh midline surgical dressing. LUNGS: Distant breath sounds bilaterally. HEART: Bradycardic without murmur. ABDOMEN: Soft, nontender. EXTREMITIES: No CCE. NEUROLOGICAL: The patient is currently sedated and unable to perform neuro exam. LABORATORY DATA: ABG shows pO2 over 300 on ventilator. CBC and BMP are normal. Telemetry shows bradycardia. ASSESSMENT: 1. Postop day one 4-vessel CABG for coronary artery disease, symptomatic. 2. History of mild LV dysfunction with EF of 45%, mild mitral regurgitation, trivial aortic insufficiency, mild tricuspid regurgitation, history of calcium kidney stones, history of allergic rhinitis, family history of colon cancer. PLAN: We will follow medically with you. We will discuss with family his operative course. I have discussed this case with Dr. Scott. TRANSINT:[id number] Voice Confirmation ID: [id number] DOCUMENT ID: [id number] SHIRLENE MEDINA MD at 0725 CC: [id number] DICTATION DATE: 02/27/19 1326 SUPERVISOR SANDING: 02/27/19 1416 ADM IN [facility] [address] [place] [address]
--- NOTE | 2019-03-03 08:17 | NUR ---
HYDROCODONE GIVEN FOR PAIN PER ORDERS. WILL CONTINUE TO MONITOR.
--- NOTE | 2019-03-03 09:30 | NUR ---
AMBULATED ABOUT 250FT WITH PHYSICAL THERAPY THIS MORNING. TOLERATED WELL. HR RAMAINS IN 90-100S. WILL CONTINUE TO MONITOR.
--- NOTE | 2019-03-03 09:52 | NUR ---
Nutrition follow up: Reviewed chart and spoke with pt and nursing AHA cardiac diet with 10-25% intake of meals Pt reports he is not hungry however he is trying to eat Pt will try Ensure-added to lunch today Discussed the importance of protein while healing RD following
--- NOTE | 2019-03-03 10:28 | NUR ---
SPOKE WITH CARDIOLOGY OFFICE. WAS NOTIFIED THAT DR. MORENO IS OUT FOR TODAY. WORKERS COMPENSATION CLAIMS EXAMINER WILL BE DOING ROUNDS ON DR. MORENO'S PATIENTS SOMETIME TODAY.
--- NOTE | 2019-03-03 11:01 | NUR ---
RE-ASSESSMENT COMPLETED. NO ACUTE CHANGES FROM PREVIOUS ASSESSMENT. PT REPORT NO PAIN AT THIS TIME. PULLS 1000 ON INCENTIVE SPIROMETER. RESTING COMFORTABLY IN CHAIR. WILL CONTINUE TO MONITOR.
--- NOTE | 2019-03-03 13:24 | NUR ---
AMBULATED ABOUT 250FT WITH PHYSICAL THERAPY AT THIS TIME. HR INCREASED TO 120S BUT CAME BACK DOWN ONCE PT WAS SITTING IN CHAIR. WILL CONTINUE TO MONITOR.
--- NOTE | 2019-03-03 15:38 | NUR ---
RE-ASSESSMENT COMPLETED AND CHARTED IN FLOWSHEET. NO ACUTE CHANGES FROM PREVIOUS ASSESSMENT. HR CONTINUES IN A-FIB CONTROLLED AND UNCONTROLLED. PT DENIES ANY PAIN AT THIS TIME. WILL CONTINUE TO MONITOR.
--- NOTE | 2019-03-03 16:23 | NUR ---
REPORTS NAUSEA AND PAIN 5/10 AT INCISION SITE. ZOFRAN AND NORCO GIVEN PER ORDERS. WILL CONTINUE TO MONITOR.
--- NOTE | 2019-03-03 17:35 | NUR ---
DINNER TRAY IN ROOM. PT RESTING COMFORTABLY. STATES THAT PAIN HAS EASED UP WITH PAIN MEDICINE. DENIES FURTHER NEEDS AT THIS TIME. WILL CONTINUE TO MONITOR.
--- NOTE | 2019-03-03 17:35 | MORECARE ---
CASE MANAGEMENT DISCHARGE SUMMARY PATIENT: CHARAN SHAH UNIT: [id number] ADM DATE: 02/27/19 AGE: 73 : 45 SEX: M ROOM/BED: D[facility] [place] AUTHOR: BONY,DOC PHYSICIAN: REFERRING PHYSICIAN: RADAMES SCOTT MD DATE OF SERVICE: 03/03/19 Discharge Plan Patient Name: CHARAN SHAH Facility: [facility]:[place] : 1945 Planned Disposition: Home Anticipated Discharge Date: Discharge Date: Expected LOS: Initial Reviewer: [email or web address] Initial Review Date: 03/03/2019 Generated: 03/03/19 6:35 pm Comments DCP- Discharge Planning Updated by [email or web address]: Simran Moreno on 03/03/19 4:[address] Patient Name: CHARAN SHAH Admission Status: Elective Accout number: [id number] Admission Date: 02-27-2019 : 1945 Admission Diagnosis:ATHSCL HEART DISEASE OF [place] CORONARY ARTERY W/O ANG Attending: RADAMES SCOTT Current LOS: 4 Anticipated DC Date: Planned Disposition: Home Primary Insurance: [employer] Discharge Planning Comments: CM met with patient at bedside after explaining CM role and obtaining verbal consent. Patient lives at home alone and plans to return there upon discharge. Patient states his daughter is planning on staying with him for awhile after discharge. Patient feels this would be a safe discharge. CM discussed availability / needs of home health and medical equipment. Patient denies any discharge needs at this time. Patient states he will have family drive him home upon discharge. CM will continue to follow and assist as needed with discharge planning / needs. Edge Trimming Machine Operator: Simran Moreno DCPIA - Discharge Planning Initial Assessment Updated by [email or web address]: Simran Moreno on 03/03/19 5:32 pm * Is the patient Alert and Oriented? Yes * How many steps to enter\exit or inside your home? 3-4 * PCP BULGARIAN * Pharmacy [facility] * Preadmission Environment Home Alone * ADLs Independent * Equipment None * List name and contact numbers for known caregivers / representatives who currently or will assist patient after discharge: CONRADO SHAH - SON - [phone] YESSICA SPARKS - DAUGHTER - [phone] * Verbal permission to speak to the caregivers and representatives has been obtained from the patient. N/A * Community resources currently utilized None * Additional services required to return to the preadmission environment? No * Can the patient safely return to the preadmission environment? Yes * Has this patient been hospitalized within the prior 30 days at any hospital? No Patient Name: CHARAN SHAH Page [phone] at 1735 All edits/amendments must be made on the electronic document DICTATION DATE: 03/03/191733 EDUCATION AND TRAINING COORDINATOR: CORINA 03/03/191733 RPT#: [id number] DC DATE: STATUS: ADM IN [facility] [address] [place] [address] END OF REPORT
--- NOTE | 2019-03-03 19:00 | NUR ---
REPORT RECEIVED, SHIFT ASSESSMENT COMPLETE SEE FLOW SHEET, PT AAOx4 SITTING UP IN CHAIR, MIDSTERNAL AND SUBSTERNAL DRSGS C/D/I, TPM WIRES COILED, ZO DRAIN COMPRESSED, RLE HARVEST SITES WELL APPROXIMATED GROUP SOCIAL WORKER, BREONNA HOSE AND NON-SLIP SOCKS ON BLE, LEFT FA 20g PIV INFUSING CARDIZEM @7MG/HR, IRREGULAR HR/RHYTHM ON CM PHYSICIANES AWARE, OTHER VSS, DENIES PAIN OR NEEDS AT THIS TIME, CALL LIGHT IN REACH, FALL PREVENTION REVIEWED WITH PT, WILL CONTINUE TO MONITOR
--- NOTE | 2019-03-03 21:00 | NUR ---
PT ASSISTED TO AMBULATE TO BATHROOM, SEMISOLID BM NOTED WITH CLEAR YELLOW VOID, PT AMBULATED WITH MINIMAL ASSIST BACK TO CHAIR PER REQUEST, VSS, MEDS GIVEN PER ORDER/MAR, WILL CONTINUE TO MONITOR
--- NOTE | 2019-03-03 21:30 | NUR ---
AT BEDSIDE, UPDATE GIVEN, DENIES NEEDS AT THIS TIME, PT RESTING COMFORTABLY IN CHAIR
--- NOTE | 2019-03-03 23:00 | NUR ---
COMPLETE LINEN CHANGE AND PT GOWN, ASSISTED PT BACK TO BED, REASSESSMENT COMPLETE PER FLOW SHEET, NO ACUTE CHANGES, REPOSITIONED FOR COMFORT, HOB ELEVATED, ALL DRSG'S C/D/I, ZO DRAIN INTACT AND COMPRESSED, VSS, CALL LIGHT IN REACH, SR UPx2, WILL CONTINUE TO MONITOR
[2019-03-04] VITALS (29 sets, daily range): BP systolic 92–119; BP diastolic 58–73
--- NOTE | 2019-03-04 03:00 | NUR ---
REASSESSMENT COMPLETE SEE FLOW SHEET, NO ACUTE CHANGES NOTED, PT RESTING COMFORTABLY, DENIES PAIN OR NEEDS, RATE AND RHYTHM ON CM UNCHANGED, OTHER VSS, REPOSITIONED FOR COMFORT, WILL CONTINUE TO MONITOR
[2019-03-04 04:24] LABS: HEMATOCRIT 31.4 % (42.0-54.0); HEMOGLOBIN 10.4 g/dL (13.5-17.5); MCHC 33.1 g/dL (31.0-37.0); MCV 90.5 fL (80.0-100.0); MEAN PLATELET VOLUME 9.5 fL (7.4-10.4); RBC 3.47 10x6/uL (4.20-6.10); RDW 12.9 % (11.5-14.5); WBC 9.8 10x3/uL (4.8-10.8)
[2019-03-04 04:26] LABS: ALBUMIN 2.2 g/dL (3.4-5.0); ALKALINE PHOSPHATASE 52 U/L (46-116); ALT (SGPT) 19 U/L (10-68); BILIRUBIN - TOTAL 0.66 mg/dL (0.2-1.3); CALC OSMOLALITY 282 mosm/kg (275-300); CALCIUM 8.5 mg/dL (8.5-10.1); CARBON DIOXIDE 29.9 mmol/L (21.0-32.0); CHLORIDE - SERUM 101 mmol/L (98-107); CREATININE - SERUM 0.9 mg/dL (0.6-1.3); GLUCOSE 112 mg/dL (74-106); POTASSIUM - SERUM 4.2 mmol/L (3.5-5.1); PROTEIN - SERUM 5.3 g/dL (6.4-8.2); SODIUM 138 mmol/L (136-145); UREA NITROGEN 29 mg/dL (7-18); eGFR NON AFRICAN AMERICAN 88 mL/min (90-120)
--- NOTE | 2019-03-04 13:28 | NUR ---
CARDIZEM DRIP DC'D AT THIS TIME PER ORDERS. CARDIZEM PO GIVEN EARLIER TODAY. WILL CONTINUE TO MONITOR.
--- NOTE | 2019-03-04 19:00 | NUR ---
REPORT RECEIVED, ASSESSMENT COMPLETE PER FLOW SHEET, PT AAOx4 DENIES PAIN OR NEEDS AT THIS TIME, SITTING IN BEDSIDE CHAIR, DRSG'S C/D/I, SCD/BREONNA CORTÉS ON, AFIB ON CM, OTHER VSS, WILL CONTINUE TO MONITOR
--- NOTE | 2019-03-04 20:28 | NUR ---
SCHEDULED MEDS GIVEN, SEE EMAR FOR DETAILS. WATER PROVIDED. CALL LIGHT WITHIN REACH.
--- NOTE | 2019-03-04 22:00 | NUR ---
RESTING IN BED, DENIES NEEDS. CALL LIGHT WITHIN REACH.
--- NOTE | 2019-03-04 23:00 | NUR ---
REASSESSMENT COMPLETED PER FLOW SHEET, SEE FOR DETAILS. NO ACUTE DISTRESS NOTED. DENIES NEEDS AT THIS TIME. CALL LIGHT WITHIN REACH.
[2019-03-05] VITALS (24 sets, daily range): BP systolic 84–110; BP diastolic 52–79
--- NOTE | 2019-03-05 01:00 | NUR ---
RESTING, DENIES NEEDS AT THIS TIME. CALL LIGHT WITHIN REACH. WILL CONTINUE TO MONITOR.
--- NOTE | 2019-03-05 03:00 | NUR ---
REASSESSMENT COMPLETED PER FLOW SHEET, SEE FOR DETAILS. NO ACUTE CHANGES NOTED. DENIES NEEDS. CALL LIGHT WITHIN REACH. WILL CONTINUE TO MONITOR.
--- NOTE | 2019-03-05 04:00 | NUR ---
AT BEDSIDE, UPDATE GIVEN, QUESTIONS ANSWERED. PATIENT DENIES NEEDS. CALL LIGHT WITHIN REACH.
--- NOTE | 2019-03-05 05:00 | NUR ---
COMPLETE BATH WITH MINIMAL ASSISSTANCE. COMPLETE BED LINEN CHANGE PROVIDED.
--- NOTE | 2019-03-05 06:45 | NUR ---
PT UP TO BATHROOM, HR ELEVATED 150'S SUSTAINED FOR TEN MINUTES, B/P 102/68(77), OTHER VSS, PT DENIES PAIN, NOTIFIED, ORDERS RECEIVED; GIVE 80MG SOTOLOL, AND HOLD ALL OTHER MEDS. PT RESTING IN BED AT THIS TIME, MED GIVEN PER ORDERS, WILL NOTIFY ONCOMING DAYSHIFT RN AND CONTINUE TO MONITOR
--- NOTE | 2019-03-05 11:04 | NUR ---
PT ASSISTED UP TO TOILET. SAYS PASSED GAS AND SMALL AMOUNT OF DIARRHEA. EXTENSION SERVICE SPECIALIST IN CHARGE NOW AT BEDSIDE.
--- NOTE | 2019-03-05 13:30 | NUR ---
Nutrition follow up Cardiac diet with 0-40% intake of meals Pt reports appetite is starting to tack picker. Pt is drinking supplements Recommend pt drink 3 supplements per day and pt agreed Pt has nutella on bedside table which is a good high calorie choice Pt has no questions at this time RD following
--- NOTE | 2019-03-05 16:01 | NUR ---
PT ASSISTED TOILETING. RETURNED TO CHAIR AND PLACED ON MONITORING.
--- NOTE | 2019-03-05 19:00 | NUR ---
REPORT RECEIVED CARE ASSUMED ASSESSMENT DONE SEE FLOW SHEET VSS NO SIGNS OF ACUTE DISTRESS NOTED WILL CONTINUE TO MONITOR.
--- NOTE | 2019-03-05 21:00 | NUR ---
MEDS GIVEN PER MAR VSS NO SIGNS OF ACUTE DISTRESS NOTED. COMPLETE BED BATH GIVEN VSS WILL CONTINUE TO MONITOR.
--- NOTE | 2019-03-05 23:00 | NUR ---
REASSESSMENT DONE SEE FLOW SHEET VSS NO SIGNS OF ACUTE DISTRESS NOTED WILL CONTINUE TO MONITOR.
[2019-03-06] VITALS (25 sets, daily range): BP systolic 89–116; BP diastolic 55–75
--- NOTE | 2019-03-06 03:00 | NUR ---
REASSESSMENT DONE SEE FLOW SHEET VSS NO SIGNS OF ACUTE DISTRESS NOTED WILL CONTINUE TO MONITOR.
--- NOTE | 2019-03-06 05:00 | NUR ---
PT SITTING UP IN CHAIR FAMILY AT BEDSIDE VSS NO SIGNS OF ACUTE DISTRESS NOTED WILL CONTINUE TO MONITOR.
--- NOTE | 2019-03-06 07:25 | NUR ---
SHIFT REPORT RECEIVED. PT UP IN CHAIR. AA&0. STATES HE IS COMFORTABLE AT THIS TIME. NO PAIN. HR IN 70S NORMAL SINUS. ON ROOM AIR. MIDSTERNAL DRESSING IN PLACE. ZO DRAIN IN PLACE, DRESSING C/D/I. RLE HARVEST SITES OK. SHIFT ASSESSMENT COMPLETED. NO FURTHER NEEDS AT THIS TIME. WILL CONTINUE TO MONITOR.
--- NOTE | 2019-03-06 09:51 | NUR ---
PT USED BATHROOM. CLEAR MUCUS NOTED IN HAT. ATTEMPTED TO NOTIFY [place]ONG KONGER. OFFICE TOOK MESSAGE. WILL WAIT TO HEAR BACK FROM DR. MEDINA. PT CURRENTLY RESTING IN BED. ZO DRAIN AND TPM WIRES REMOVED THIS MORNING BY GERSON. WILL CONTINUE TO MONITOR.
[2019-03-06] MEDS ORDERED: BETAPACE 80 MG80 MG PO (10:46)
[2019-03-06] MEDS ORDERED: PERCOCET 5-3251 TAB PO (10:47)
--- NOTE | 2019-03-06 11:29 | NUR ---
DR. MEDINA NURSE RETURNED CALL. WANTS CDIFF ORDER TO BE CANCEL AT THIS TIME.
--- NOTE | 2019-03-06 13:34 | NUR ---
PT REPORTED TINGLING ON HIS RIGHT ARM AND SLURRED SPEECH FOR A FEW SECONDS. HIT HIS CALL LIGHT BUTTON AND FRIEND CAME OUT TO GET NURSE. NURSE WENT AND ASSESSED PT. HR IN 70S NORMAL SINUS. BP 108/62. NO RHYTHM CHANGES NOTED ON FIRE EXTINGUISHER REPAIRER. NOTIFIED GERSON CHAVES, DR. SCOTT'S NURSE OF EPISODE. PT IS RESTING COMFORTABLY IN CHAIR. WILL CONTINUE TO MONITOR CLOSEY.
--- NOTE | 2019-03-06 13:34 | NUR ---
PT REPORTED TINGLING ON HIS LEFT ARM AND SLURRED SPEECH THAT LASTED ABOUT 4 SECS. FRIEND IN ROOM AT THE TIME. QUICKLY NOTIFIED NURSE. ASSESSED PT. HR IN 70S NORMAL SINUS, BP 108/62. NO RHYTHM CHANGES NOTED ON VACCINES SOLUTIONS SPECIALIST. PT STATED THAT AT TIME OF EPIDOSE HR INCREASED TO 80S BUT DROPPED BACK DOWN TO 70S. NURSE NOTIFIED DR. SONIA NIETO'S NURSE. WILL COTNINUE TO MONITOR CLOSELY.
--- NOTE | 2019-03-06 13:59 | NUR ---
ASSISSTED PT BACK TO BED AT THIS TIME. NO ACUTE CHANGES NOTED. WILL CONTINUE TO MONITOR.
--- NOTE | 2019-03-06 14:44 | NUR ---
DR. SCOTT IN UNIT. WANTS PT TO REST IN BED OR CHAIR.
--- NOTE | 2019-03-06 17:00 | NUR ---
PT RESTING COMFORTABLY IN CHAIR. BATH OFFERED AT THIS TIME. PT REFUSED BATH.
--- NOTE | 2019-03-06 19:05 | NUR ---
SHIFT ASSESSMENT COMPLETE. PT IS A&O X4 WITH NO COMPLAINTS OF PAIN OR DISCOMFORT. HE IS SITTING UP IN THE CHAIR. HAND SECOND HELPER AND FOOT PUMPS STRONG AND EQUAL, PERRLA, 3 MM, BRISK REACTION TO LIGHT. S1S2 AUDIBLE, HR 80 BPM NSR SHOWING ON MONITOR. RR EVEN AND UNLABORED. MIDLINE INCISION INFORMATION MANAGEMENT SPECIALIST, NO S/S INFECTION NOTED. SUBSTERNAL DRESSING CDI, PACER WIRE INCISIONS OK. ABD ROUND AND SOFT, BS ACTIVE X4. R LEG HARVEST SITES OK. IS USE X10, 500-750 ML, GOOD EFFORT. NO NEEDS AT THIS TIME. VSS. CALL LIGHT IN REACH, BED IN LOWEST POSITION. WILL CONT WITH POC.
--- NOTE | 2019-03-06 20:55 | NUR ---
CALLED PHARMACY FOR BACTROBAN OINTMENT.
--- NOTE | 2019-03-06 21:00 | NUR ---
CHG BATH AND COMPLETE LINEN CHANGE PROVIDED. PT OOB USING RESTROOM. GAIT IS STEADY. PO MEDS TAKEN WITHOUT DIFFICULTY. REFRESHEMENTS BROUGHT TO BEDSIDE. PT DENIES ANY FURTHER NEEDS. WILL CONT WITH POC.
--- NOTE | 2019-03-06 21:47 | NUR ---
CALLED PHARMACY AGAIN FOR BACTROBAN OINTMENT. WILL AWAIT ARRIVAL.
--- NOTE | 2019-03-06 23:00 | NUR ---
REASSESSMENT COMPLETE. NO CHANGES FROM PREVIOUS ASSESSMENT. VSS. CALL LIGHT IN REACH, BED IN LOWEST POSITION. PT IS RESTING PEACEFULLY.
[2019-03-07] VITALS (13 sets, daily range): BP systolic 91–125; BP diastolic 56–67
--- NOTE | 2019-03-07 01:00 | NUR ---
PT RESTING PEACEFULLY WITH NO SIGNS OF ACUTE DISTRESS NOTED. VSS. WILL CONT WITH POC.
--- NOTE | 2019-03-07 03:00 | NUR ---
REASSESSMENT COMPLETE. VSS. ASSISTED PT TO RESTROOM, GAIT STEADY. PT IS IN GOOD SPIRITS AT THIS TIME. NO CHANGES IN PT CONDITION. SEE FLOWSHEET FOR FURTHER DETIALS. WILL CONT WITH POC.
--- NOTE | 2019-03-07 05:00 | NUR ---
ASSISTED PT TO PA AND LAT THIS AM, PT TOLERATED WELL. HE IS NOW IN THE CHAIR. NO PAIN OR DISCOMFORT AT THIS TIME. VSS. WILL CONT WITH POC.
[2019-03-07 05:47] LABS: HEMATOCRIT 37.7 % (42.0-54.0); HEMOGLOBIN 12.6 g/dL (13.5-17.5); MCH 30.1 pg (26.0-34.0); MCHC 33.4 g/dL (31.0-37.0); MEAN PLATELET VOLUME 9.4 fL (7.4-10.4); RBC 4.19 10x6/uL (4.20-6.10); RDW 13.1 % (11.5-14.5)
[2019-03-07 05:58] LABS: ANION GAP 9.7 mmol/L (8-16); CALCIUM 8.9 mg/dL (8.5-10.1); CARBON DIOXIDE 30.8 mmol/L (21.0-32.0); CREATININE - SERUM 1.1 mg/dL (0.6-1.3); POTASSIUM - SERUM 4.5 mmol/L (3.5-5.1)
--- NOTE | 2019-03-07 09:38 | NUR ---
0700 PT RECIEVED UP IN CHAIR ON ROOM AIR HR NSR MIDSTERNAL AND SUBSTERNAL INCISIONS CDI, LFA PIV SL, CONTINENT, ABLE TO AMBULATE INDEPENDENTLY, NO NEURO DEFICITS NOTED 0830 TOOK AM MEDS AND ATE BREAKFAST WITHOUT DIFFICULTY, 0900 SMALL BM
--- NOTE | 2019-03-07 09:40 | TEE ---
PATIENT:CHARAN SHAH MEDICAL RECORD: [id number] LOCATION:[place] [address] AGE OF PATIENT: 73 ADMISSION DATE: 02/27/19 SEX: M REFERRING PHYSICIAN: INTERPRETING PHYSICIAN: RANDY RUTLEDGE MD TRANSESOPHAGEAL ECHOCARDIOGRAM Date: 02/27/19 KEILY CHARGE Y INDICATIONS: CABG PREMEDICATIONS: PATIENT'S RESPONSE PROCEDURE DOPPLER MEASUREMENTS: LVIT LA PA RA LVOT RVOT Asc. Ao AV Gradient Peak AV Mean AV Area MV Gradient Peak MV Mean MV Area INTERPRETATION: LVd: 4.6 cm LVs: 3.3 cm Doppler: 2-D: COLOR FLOW DOPPLER NORMAL SALINE STUDY: MISCELLANOUS: DIAGNOSIS: PLAN: Ad Terminal Makeup Operator:Suzette Barnett Staffing Analyst: Evelyn OSORIO COMMENTS: DATE OF SERVICE: 02/27/2019 PROCEDURE: Transesophageal echo evaluation of valvular structures during bypass surgery. FINDINGS: 1. Left ventricular chamber size is within normal limits. Left ventricular systolic function is depressed at 35%. 2. Left atrium, right atrium, and right ventricular chamber sizes are mildly TRANSESOPHAGEAL ECHOCARDIOGRAM REPORT [id number] CHARAN SHAH dilated. 3. Valvular structures have normal structure and motion. 4. Doppler interrogation reveals only trace mitral regurgitation, mild tricuspid regurgitation. No other valvular insufficiency or stenosis. 5. No evidence of pericardial effusion or left ventricular thrombus. TRANSINT:[id number] Voice Confirmation ID: [id number] DOCUMENT ID: [id number] at 0940 CC: [id number] DICTATION DATE: 03/04/19 1640 TUBE BUILDER AIRPLANE: 03/05/19 0400 ADM IN [place] [id number] [place] [address]
--- NOTE | 2019-03-07 09:40 | EC ---
PATIENT:CHARAN SHAH DATE OF SERVICE: 02/27/19 SEX: M MEDICAL RECORD: [id number] DATE OF : [birth year] LOCATION:[place] [address] AGE OF PATIENT: 73 ADMISSION DATE: 02/27/19 REFERRING PHYSICIAN: INTERPRETING PHYSICIAN: RANDY FLORES MD ECHOCARDIOGRAM REPORT ECHO CHARGES 4 ECHO COMPLETE Date: 03/05/19 CLINICAL DIAGNOSIS: P. ATRIAL FIB/ RECENT CABG LAST WEEK ECHOCARDIOGRAPHIC MEASUREMENTS (adult normal given) AC root (d.<3.7cm) 3.2 cm LV Septum d (<1.2 cm> 1.5 cm Valve Excursion 1.8 cm LV Septum (systole) 1.8 cm Left Atria (s.<4.0cm> 3.8 cm LVPW d(<1.2cm) 1.3 cm RV (d.<2.3cm) 2.9 cm LVPW (sytole) 1.5 cm LV diastole(<5.6CM) 5.8 cm MV E-F(>70mm/sec) cm LV systole 4.1 cm LVOT Diameter 2.1 cm MV exc.(>10mm) cm Est.ejection fraction (50-75%) % DOPPLER: LVIT cm/sec A 96.0 cm/sec E 49.0 cm/sec LA cm/sec RVSP 26 mmHg LVOT 60 cm/sec AOP1/2T m/s Asc. Ao 95 cm/sec RVOT 49 cm/sec RA cm/sec PA 84 cm/sec AV Gradient Peak 3.59 mmHg AV Mean 2.02 mmHg AV Area 2.3 cm MV Gradient Peak mmHg MV Mean mmHg MV Area cm COMMENTS: Buck Swamper: Suzette HIDALGO Laminate Floor Installer: 1 Dr. Flores TAPE# PACS Pericardial Effusion N DATE OF SERVICE: FINDINGS: 1. Left ventricular chamber size is within normal limits. Left ventricular systolic function mildly reduced at 40% to 45%. 2. Left atrium is within normal limits at 3.8 cm. Right atrium and right ventricle chamber sizes are mildly dilated. 3. Valvular structures have normal structure and motion. 4. Doppler interrogation reveals mild mitral regurgitation, mild tricuspid regurgitation, no other valvular insufficiency or stenosis. Pulmonary systolic ECHOCARDIOGRAM REPORT [id number] CHARAN SHAH pressure is estimated at 26 mmHg. 5. No evidence of pericardial effusion or left ventricular thrombus. 6. The patient is in atrial fibrillation during the study. TRANSINT:[id number] Voice Confirmation ID: [id number] DOCUMENT ID: [id number] RANDY FLORES MD at 0940 CC: [id number] DICTATION DATE: 03/05/19 1553 ADJUNCT COMMUNICATIONS FACULTY MEMBER: 03/06/19 0127 ADM IN [facility] [address] [place] [address]
[2019-03-07] MEDS ORDERED: ELIQUIS5 MG PO (10:52)
--- NOTE | 2019-03-07 11:07 | NUR ---
NUTRITION F/U PT REPORTS HIS APPETITE HAS NOT RETURNED YET. IS EATING SMALL AMT MEALS. WILL CONTINUE TO PROVIDE DIET, MONITOR INTAKE. RD FOLLOWING
--- NOTE | 2019-03-07 12:00 | NUR ---
DC INSTRUCTIONS REVIEWED WITH PT AND DAUGHTER BY DR ELLIOT NIETO
--- NOTE | 2019-03-07 14:04 | NUR ---
DISCHARGE TEACHING PROVIDED TO PATIENT AND DAUGHTER. UNDERSTAND PLAN FOR FOLLOW UP. PIV TO LEFT FOREARM REMOVED, TIP INTACT. NO BLEEDING.
--- NOTE | 2019-03-07 19:23 | MORECARE ---
CASE MANAGEMENT DISCHARGE SUMMARY PATIENT: CHARAN SHAH UNIT: [id number] ADM DATE: 02/27/19 AGE: 73 : [birth year] SEX: M ROOM/BED: D[facility] AUTHOR: BONY,DOC PHYSICIAN: REFERRING PHYSICIAN: RADAMES SCOTT MD DATE OF SERVICE: 03/07/19 Discharge Plan Patient Name: CHARAN SHAH Facility: [facility]:[place] : 1945 Planned Disposition: Home Anticipated Discharge Date: Discharge Date: 03/07/2019 Expected LOS: Initial Reviewer: [email or web address] Initial Review Date: 03/03/2019 Generated: 03/07/19 8:22 pm Comments DCP- Discharge Planning Updated by [email or web address]: Simran Moreno on 03/07/19 6:[address] Patient Name: CHARAN SHAH Encounter No: [id number] : 1945 Primary Insurance: [employer] Anticipated DC Date: Planned Disposition: Home External Planned Provider: : Amada/Larry MEIER 03/07 @ 1005 DCP follow-up note: Patient and family in agreement with discharge plan. No changes to plan. Case management will follow and assist as needed. Simran Moreno DCP- Discharge Planning Updated by [email or web address]: Simran Moreno on 03/03/19 4:[address] Patient Name: CHARAN SHAH Admission Status: Elective Accout number: [id number] Admission Date: 02-27-2019 : 1945 Admission Diagnosis:ATHSCL HEART DISEASE OF SAULT 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 Patient lives at home alone and plans to return there upon discharge. Patient states his daughter is planning on staying with him for awhile after discharge. Patient feels this would be a safe discharge. CM discussed availability / needs of home health and medical equipment. Patient denies any discharge needs at this time. Patient states he will have family drive him home upon discharge. CM will continue to follow and assist as needed with discharge planning / needs. Pest Control Technician: Simran Moreno DCPIA - Discharge Planning Initial Assessment Updated by [email or web address]: Simran Moreno on 03/03/19 5:32 pm * Is the patient Alert and Oriented? Yes * How many steps to enter\exit or inside your home? 3-4 * PCP [facility] * [facility] * Preadmission Environment Home Alone * ADLs Independent * Equipment None * List name and contact numbers for known caregivers / representatives who currently or will assist patient after discharge: CONRADO SHAH - SON - [phone] YESSICA SPARKS - DAUGHTER - [phone] * Verbal permission to speak to the caregivers and representatives has been obtained from the patient. N/A * Community resources currently utilized None * Additional services required to return to the preadmission environment? No * Can the patient safely return to the preadmission environment? Yes * Has this patient been hospitalized within the prior 30 days at any hospital? No Coverage Notice Reviewer: [email or web address] - Simran Moreno Notice Issued Date-Time: 03/07/2019 10:05 Notice Type: IM Discharge Notice Notice Delivered To: Patient Relationship to Patient: Self Office Messenger Name: Delivery Method: HAND - Hand Delivered Nolvia Days: Prior Verbal Notification: Recipient Understood Notice: Yes Recipient Signature: Yes Med Rec Note Co-signed by Attending: Coverage Notice Comment: Last DP export: 03/03/19 4:35 p Patient Name: CHARAN SHAH Page [id number] at 1923 All edits/amendments must be made on the electronic document DICTATION DATE: 03/07/191921 ENTOMOLOGY PROFESSOR: CORINA 03/07/191921 RPT#: [id number] DC DATE:03/07/19 STATUS: DIS IN [facility] [address] [place] [address] END OF REPORT
== END 2019-03-07 14:05 | disposition home or self-care (01) | DRG 236 ==
LOC: D.SDCHOLD 02-27 05:00 → D.CVICU 02-27 05:00 → D.SDCHOLD 02-27 07:30 → D.CVICU 02-27 11:06
PROVIDERS: ADMIT Thoracic Surgery (Cardiothoracic Vascular Surgery); ATTEND Thoracic Surgery (Cardiothoracic Vascular Surgery)
PROC: 021209W Bypass Coronary Artery, Three Arteries from Aorta with Autologous Venous Tissue, Open Approach (ICD-10-PCS; 2019-02-27)
PROC: 06BP4ZZ Excision of Right Saphenous Vein, Percutaneous Endoscopic Approach (ICD-10-PCS; 2019-02-27)
PROC: 5A1221Z Performance of Cardiac Output, Continuous (ICD-10-PCS; 2019-02-27)
PROC: B24BZZ4 Ultrasonography of Heart with Aorta, Transesophageal (ICD-10-PCS; 2019-02-27)
PROC: 02100Z9 Bypass Coronary Artery, One Artery from Left Internal Mammary, Open Approach (ICD-10-PCS; principal; 2019-02-27 07:30)
DX: I25.10 Atherosclerotic heart disease of native coronary artery without angina pectoris (principal); J98.11 Atelectasis; I48.1 Persistent atrial fibrillation; R47.01 Aphasia; G45.9 Transient cerebral ischemic attack, unspecified; D72.829 Elevated white blood cell count, unspecified; I48.0 Paroxysmal atrial fibrillation; R00.8 Other abnormalities of heart beat; R53.1 Weakness; R19.7 Diarrhea, unspecified

== ENCOUNTER → 2019-04-01 13:52 | Outpatient (CLI) | payer OTHER ==
[2019-02-28 11:01] VITALS: BMI 24.6
[~2019-04-01 13:52] MED LIST changes: +BETAPACE 80 MG80 MG PO; +ELIQUIS5 MG PO; +PERCOCET 5-3251 TAB PO
[2019-04-01 14:27] LABS: ANION GAP 10.1 mmol/L (8-16); CALCIUM 9.1 mg/dL (8.5-10.1); CARBON DIOXIDE 31.1 mmol/L (21.0-32.0); CREATININE - SERUM 1.1 mg/dL (0.6-1.3); POTASSIUM - SERUM 4.2 mmol/L (3.5-5.1)
== END | disposition home or self-care (01) ==
LOC: D.LAB 13:52
PROVIDERS: ATTEND Thoracic Surgery (Cardiothoracic Vascular Surgery)
DX: I25.10 Atherosclerotic heart disease of native coronary artery without angina pectoris (principal)